=== PATIENT | female | born 1990 | race Caucasian/White ===

== ENCOUNTER 2016-10-25 17:46 | Emergency (ER) | payer SELFPAY ==
[~2016-10-25] VITALS: Ht 160 cm; Wt 71.7 kg
[2016-10-25] MEDS ORDERED: LORAZEPAM 1 MG TABLET PO ONE (18:00)
[2016-10-25] MEDS ORDERED: LORAZEPAM 1 MG TABLET ONE (18:03)
[2016-10-25 18:08] LABS: BASOPHILS # (AUTO) 0.1 /CMM (0.0-0.2); BASOPHILS % (AUTO) 0.6 % (0.0-2.0); EOSINOPHILS # (AUTO) 0.8 /CMM (0.0-0.7); EOSINOPHILS % (AUTO) 7.4 % (0.0-6.0); HEMATOCRIT 37 % (33-45); HEMOGLOBIN 12.4 g/dL (11.5-14.8); LYMPHOCYTES # (AUTO) 2.7 /CMM (0.8-4.8); LYMPHOCYTES % (AUTO) 24.9 % (20.0-44.0); MEAN CORPUSCULAR HEMOGLOBIN 29 PG (26.0-33.0); MEAN CORPUSCULAR HGB CONC 33 g/dl (31.0-36.0); MEAN CORPUSCULAR VOLUME 86 fL (82-100); MONOCYTES # (AUTO) 0.6 /CMM (0.1-1.30); MONOCYTES % (AUTO) 5.6 % (2.0-12.0); NEUTROPHILS # (AUTO) 6.6 /CMM (1.8-8.9); NEUTROPHILS % (AUTO) 61.5 % (43.0-81.0); PLATELET COUNT (AUTO) 318 /CMM (150-450); RDW COEFFICIENT OF VARIATION 14.9 (11.5-15.0); RED BLOOD CELL COUNT(AUTO) 4.34 MIL/uL (4.0-5.2); WHITE BLOOD COUNT (AUTO) 10.8 K/uL (4.3-11.0)
[2016-10-25 18:19] LABS: CALCIUM, SERUM 8.4 mg/dL (8.5-10.1); POTASSIUM 4.4 mmol/L (3.5-5.1)
[2016-10-25 18:23] LABS: INR 0.98 (0.87-1.13); PROTHROMBIN TIME 10.2 SECS (9.5-12.7)
[2016-10-25 18:25] LABS: ALBUMIN 3.8 g/dL (3.4-5.0); BILIRUBIN,DIRECT 0.1 mg/dL (0.0-0.2); BILIRUBIN,TOTAL 0.3 mg/dL (0.2-1.0); TOTAL PROTEIN, SERUM 7.2 g/dL (6.4-8.2)
[2016-10-25] MEDS ORDERED: ACETAMINOPHEN ES 500 MG TABLET ONE (19:13)
[2016-10-25] MEDS ORDERED: ACETAMINOPHEN ES 500 MG TABLET PO ONE (19:30)
[2016-10-25 20:00] VITALS: BP 117/76
== END 2016-10-25 20:01 | disposition home or self-care (01) ==
LOC: ER 17:49
DX: R56.9 Unspecified convulsions (principal)
CPT/HCPCS: 36415; 70450; 80048; 80076; 84703; 85025; 85730; 99285; A4606; Z7610

== ENCOUNTER 2022-06-03 22:54 | Emergency (ER) | payer MEDICAID ==
[~2022-06-03] VITALS: Ht 160 cm; Wt 63.5 kg
--- NOTE | 2022-06-03 23:05 | NUR ---
CAME WITH IV LEONARD ON LEFT HAND G20 FROM OUTSIDE
--- NOTE | 2022-06-03 23:05 | NUR ---
[id number]. S/P WITNESSED SEIZURE, DESCRIBED TONIC CLONIC. R UPPER LIP LAC, NON COMPLIANT TO MEDS. PATIENT IS AAOX4. ABLE TO MAKE NEEDS KNOWN. SLEEPY BUT AROUSABLE. PLACED COMFORTABLY IN BED. ON SEIZURE PRECAUTION. VITALS CHECKED.
[2022-06-03] MEDS ORDERED: TDAP [DIPH/PERTUSSIS/TET] 0.5 ML VIAL IM ONE ×2 (23:20→23:30)
[2022-06-03] MEDS ORDERED: LEVETIRACETAM (500MG) 500 MG/5 ML VIAL IV ONE (23:20)
[2022-06-03] MEDS ORDERED: LEVETIRACETAM (500MG) 500 MG in IV NS 0.9% 100 ML IV ONE (23:30)
--- NOTE | 2022-06-03 23:37 | NUR ---
DISCLAIMER SIGNED THAT SHE IS NOT . ATTACHED TO CHART.
--- NOTE | 2022-06-03 23:45 | NUR ---
BS OF 101mg/dl. AWARE
--- NOTE | 2022-06-03 23:45 | NUR ---
OPERATING THEATRE TECHNICIAN AT BEDSIDE
--- NOTE | 2022-06-04 00:14 | NUR ---
CAME BACK FROM CT DEPT
[2022-06-04] MEDS ORDERED: LIDOCAINE HCL/PF 1% 30 ML SDV ONE (00:34)
--- NOTE | 2022-06-04 00:47 | NUR ---
SUTURING OF WOUND DONE UNDER LOCAL ANESTHESIA
[2022-06-04 00:52] LABS: BASOPHILS # (AUTO) 0.1 K/uL (0.0-0.2); BASOPHILS % (AUTO) 0.6 % (0.0-2.0); EOSINOPHILS % (AUTO) 3.3 % (0.0-6.0); HEMATOCRIT 37 % (33-45); HEMOGLOBIN 11.8 g/dL (11.5-14.8); LYMPHOCYTES % (AUTO) 23.3 % (20.0-44.0); MEAN CORPUSCULAR HGB CONC 32 g/dl (31.0-36.0); MEAN CORPUSCULAR VOLUME 86 fL (82-100); MONOCYTES # (AUTO) 0.7 K/uL (0.1-1.30); MONOCYTES % (AUTO) 7.6 % (2.0-12.0); NEUTROPHILS # (AUTO) 5.6 K/uL (1.8-8.9); NEUTROPHILS % (AUTO) 65.2 % (43.0-81.0); PLATELET COUNT (AUTO) 286 K/uL (150-450); RED BLOOD CELL COUNT(AUTO) 4.26 MIL/uL (4.0-5.2); WHITE BLOOD COUNT (AUTO) 8.6 K/uL (4.3-11.0)
[2022-06-04 02:08] LABS: CALCIUM, SERUM 8.8 mg/dL (8.5-10.1); CARBON DIOXIDE 24 mmol/L (21-32); CHLORIDE 100 mmol/L (98-107); CREATININE 0.7 mg/dL (0.6-1.3); GLUCOSE 102 mg/dL (74-106); POTASSIUM 4.8 mmol/L (3.5-5.1); SODIUM SERUM 132 mmol/L (136-145); UREA NITROGEN, BLOOD 19 mg/dL (7-18)
[2022-06-04 02:11] LABS: ALANINE AMINOTRANSFERASE 40 U/L (12-78); ALBUMIN 3.6 g/dL (3.4-5.0); ALKALINE PHOSPHATASE 67 U/L (46-116); ASPARTATE AMINOTRANSFERASE 58 U/L (15-37); BILIRUBIN,TOTAL 0.4 mg/dL (0.2-1.0); TOTAL PROTEIN, SERUM 7.1 g/dL (6.4-8.2)
[2022-06-04 02:16] LABS: ALCOHOL, BLOOD < 3 mg/dL (0-0)
--- NOTE | 2022-06-04 03:00 | NUR ---
IV CANNULA REMOVED
--- NOTE | 2022-06-04 03:15 | NUR ---
Patient discharged to home in stable condition. Written and verbal after care instructions given. Patient verbalizes understanding of instruction.
[2022-06-04 03:54] VITALS: BP 127/87
== END 2022-06-04 03:54 | disposition home or self-care (01) ==
LOC: ER 23:05
DX: S02.5XXA Fracture of tooth (traumatic), initial encounter for closed fracture (principal); S01.511A Laceration without foreign body of lip, initial encounter; R56.9 Unspecified convulsions; Z91.14 Patient's other noncompliance with medication regimen; X58.XXXA Exposure to other specified factors, initial encounter; Y93.89 Activity, other specified; Y92.89 Other specified places as the place of occurrence of the external cause; Y99.8 Other external cause status
CPT/HCPCS: 12001; 99285; 90471; 96365; 93005; 90715; 70486; 36415; 82962; 85025; 80048; 80076; 85730; 80320; J7030; J1953 ×2; A6407; J3490; G0480